=== PATIENT | female | born 1980 | race Caucasian/White ===

== ENCOUNTER → 2022-06-22 | Outpatient (CLI) | payer BC ==
[~2022-06-22] MED LIST: CIPRO 500MG TA500 MG PO; NORCO 325 MG-51 TAB PO; PRENATAL VITAMI1 TA5 PO; PRINIVIL5 MG PO; PYRIDIUM200 M1 PO; ZOLOFT50 MG PO
== END ==
LOC: MC.RAD 09:15
DX: Z12.31 Encounter for screening mammogram for malignant neoplasm of breast (principal); N63.10 Unspecified lump in the right breast, unspecified quadrant

== ENCOUNTER → 2022-06-25 | Outpatient (CLI) | payer BC | LOC: MC.RAD 07:42 | DX: N63.10 Unspecified lump in the right breast, unspecified quadrant (principal) ==

== ENCOUNTER → 2023-01-07 | Outpatient (CLI) | payer BC | LOC: MC.RAD 06:54 | DX: N64.89 Other specified disorders of breast (principal) ==